=== PATIENT | male | born 1940 | race Caucasian/White ===

== ENCOUNTER 2017-08-22 21:53 | Emergency (ER) | payer OTHER ==
[~2017-08-22] VITALS: Ht 256.5 cm; Wt 119.5 kg
[2017-08-22 21:57] VITALS: TEMP 36.5
[2017-08-22] MEDS ORDERED: SODIUM CHLORIDE 0.9% 1000ML 1,000 ML IV SCH (22:10)
--- NOTE | 2017-08-22 22:19 | EMERGENCY ROOM VISIT NOTE ---
History First contact with patient: 22:01 Chief Complaint: STROKE SYMPTOMS Stated Complaint: SLURRED SPEECH History of Present Illness The patient is a 77 year old male who presents to the Emergency Room for evaluation of slurred speech. He and give history. Patient in car with while she was driving when he noted headache associated with slurred speech. This occurred around 9pm. Symptoms lasted about 20 minutes before rapidly improving. He denies any symptoms. notes it was dark so she is unsure if any facial weakness. Patient denies arm/leg weakness. He had no other symptoms with this. Denies cp, sob, palpitations, nausea, vomiting, vision changes, neck pain, falls, injuries nor other symptoms. No medications prior to arrival. Nothing makes better nor worse. History of Stroke in past with at least 2 previous episodes. Also with history of NC and cardiac arrest. Admits he is on blood thinner (aspirin/plavix) but that he missed several recent doses. Notes no known history of head bleed though admit remote history of severe head injury in 20s for which he was in hospital but unsure if bleed at that time. Review of Systems See HPI for pertinent positives & negatives. A total of 10 systems reviewed and were otherwise negative. Past Medical/Surgical History Medical: DMII, HTN, Obesity, Cardiac Arrest, CAD, Stroke, CHF Surgical: CABG, Defibrillator Family History non-contributory Social History Smoking Status: Never Smoker Smokeless Tobacco Use: No Drug Use: none Marital Status: Housing Status: lives with significant other Occupation Status: retired Current/Historical Medications Scheduled Aspirin (Aspirin Ec), 325 MG PO DAILY Carvedilol (Coreg), 1 TAB PO BID Clopidogrel (Plavix), 75 MG PO DAILY Furosemide (Lasix), 40 MG PO DAILY Insulin Aspart (Novolog Flexpen), 20 UNITS SQ TID Insulin Human NPH (Novolin N), 30-40 UNITS SQ DAILY Losartan Potassium (Cozaar), 25 MG PO DAILY Mexiletine Hcl (Mexiletine Hcl), 150 MG PO TID Spironolactone (Aldactone), 25 MG PO DAILY Physical Exam Vital Signs Date Time Temp Pulse Resp B/P (MAP) Pulse Ox O2 Delivery O2 Flow Rate FiO2 08/23/17 00:06 64 18 145/72 96 08/22/17 23:15 60 18 135/70 95 Room Air 08/22/17 22:45 60 20 131/61 96 Room Air 08/22/17 22:29 95 Room Air 08/22/17 22:26 60 08/22/17 21:57 36.5 61 18 141/67 95 Room Air Physical Exam GENERAL: Patient is well appearing and in no acute distress. EYES: No scleral icterus, unremarkable pupils. ENT: Mucous membranes moist, no nasal congestion. NECK: No masses appreciated, no meningismus, trachea is midline. RESPIRATORY: No dyspnea. Clear to auscultation and equal bilaterally. No wheeze , no rhonchi. CARDIOVASCULAR: Regular rate and rhythm. No murmurs, rubs, gallops appreciated. GASTROINTESTINAL: Abdomen soft, nontender, no peritonitis. Bowel sounds positive. No masses appreciated. BACK: No midline tenderness, no CVA tenderness EXTREMITIES: Normal motion all extremities, no cyanosis, no edema. NEUROLOGIC: Alert and oriented, no acute motor or sensory deficits, no focal weakness, cranial nerves grossly intact. SKIN: No rash, no jaundice, no diaphoresis. Medical Decision & Procedures Laboratory Results 08/22/17 22:24 Red Blood Count 4.95, Mean Corpuscular Volume 89.9, Mean Corpuscular Hemoglobin 30.3, Mean Corpuscular Hemoglobin Concent 33.7, Mean Platelet Volume 10.3, Neutrophils (%) (Auto) 64.5, Lymphocytes (%) (Auto) 17.8, Monocytes (%) (Auto) 15.6, Eosinophils (%) (Auto) 1.7, Basophils (%) (Auto) 0.2, Neutrophils # (Auto ) 6.46, Lymphocytes # (Auto) 1.78, Monocytes # (Auto) 1.56, Eosinophils # (Auto ) 0.17, Basophils # (Auto) 0.02 08/22/17 22:24 Test 08/22/17 22:20 08/22/17 22:24 Bedside Glucose 207 mg/dl (70-99) White Blood Count 10.01 K/uL (4.8-10.8) Red Blood Count 4.95 M/uL (4.7-6.1) Hemoglobin 15.0 g/dL (14.0-18.0) Hematocrit 44.5 % (42-52) Mean Corpuscular Volume 89.9 fL (80-100) Mean Corpuscular Hemoglobin 30.3 pg (25-34) Mean Corpuscular Hemoglobin Concent 33.7 g/dl (32-36) Platelet Count 225 K/uL (130-400) Mean Platelet Volume 10.3 fL (7.4-10.4) Neutrophils (%) (Auto) 64.5 % Lymphocytes (%) (Auto) 17.8 % Monocytes (%) (Auto) 15.6 % Eosinophils (%) (Auto) 1.7 % Basophils (%) (Auto) 0.2 % Neutrophils # (Auto) 6.46 K/uL (1.4-6.5) Lymphocytes # (Auto) 1.78 K/uL (1.2-3.4) Monocytes # (Auto) 1.56 K/uL (0.11-0.59) Eosinophils # (Auto) 0.17 K/uL (0-0.5) Basophils # (Auto) 0.02 K/uL (0-0.2) RDW Standard Deviation 48.4 fL (36.4-46.3) RDW Coefficient of Variation 14.9 % (11.5-14.5) Immature Granulocyte % (Auto) 0.2 % Immature Granulocyte # (Auto) 0.02 K/uL (0.00-0.02) Prothrombin Time 10.7 SECONDS (9.0-12.0) Prothromb Time International Ratio 1.0 (0.9-1.1) Activated Partial Thromboplast Time 27.0 SECONDS (21.0-31.0) Partial Thromboplastin Ratio 1.0 Anion Gap 6.0 mmol/L (3-11) Est Creatinine Clear Calc Drug Dose 68.7 ml/min Estimated GFR () 49.2 Estimated GFR (Non- 42.5 BUN/Creatinine Ratio 19.2 (10-20) Calcium Level 9.0 mg/dl (8.5-10.1) Magnesium Level 1.9 mg/dl (1.8-2.4) Total Creatine Kinase 120 U/L (39-308) Creatine Kinase MB 2.4 ng/ml (0.5-3.6) Creatine Kinase MB Ratio 2.0 (0-3.0) Troponin I < 0.015 ng/ml (0-0.045) Medications Administered Medications (Trade) Dose Ordered Sig/Valentina Route Start Time Stop Time Status Last Admin Dose Admin Sodium Chloride 1,000 ml @ 50 mls/hr Q20H IV 08/22/17 22:10 08/23/17 00:53 DC 08/22/17 22:42 50 MLS/HR ECG Per My Interpretation Indication: other (Stroke like symptoms) Rate (beats per minute): 60 Rhythm: other (Atrial Paced with 1st AV block. No ectopy, no ischemia. QTC 416) Comparison ECG Date: no prior available Medical Decision Differential: Sepsis, Infectious (UTI/Pneumonia/Meningitis/etc), Metabolic/ Electrolyte Abnormality, Cardiac, Dehydration, Anemia, Hepatic, Endocrine, Toxicologic, Neurologic, amongst other pathologies entertained. 77 yr old with complex PMH with previous stroke, NC, amongst other medical comorbidities arrives after 20 min episode slurred speech. He admits multiple missed doses of his blood thinner (kinase medication). States he feels fine now. Work-up with no acute CT head findings. Discussed that per my medical opinion he should be brought in for further work-up and evaluation however he declines. He is of sound mind to make this decision and agrees. He understands that he may have poor outocme if something is being missed. He understands this. He understands he can return at any time and that if symptoms re-occur to call 911. He will call PCP in am. Head Trauma GCS Score: 15 Medication Reconcilliation Current Medication List: was personally reviewed by me Impression Primary Impression: Slurred speech Departure Information Dispostion Home / Self-Care Condition GOOD Referrals No Doctor, Assigned (PCP) Patient Instructions My [facility] Additional Instructions Return or call 911 immediately if worsening symptoms including headache, weakness, slurred speech, confusion, seizures or other concerns. Take all of your medications as prescribed. Call your Primary Provider in the morning to set up follow up in the next few days. We are always here to help.!
[2017-08-22 22:28] VITALS: Ht 256.5 cm; Wt 119.5 kg
[2017-08-22 22:29] VITALS: O2SAT 95
[2017-08-22 22:39] LABS: BASO % 0.2 %; BASO ABS # 0.02 K/uL (0-0.2); EOS % 1.7 %; EOS ABS # 0.17 K/uL (0-0.5); HEMATOCRIT 44.5 % (42-52); IG# 0.02 K/uL (0.00-0.02); LYMPH % 17.8 %; LYMPH ABS # 1.78 K/uL (1.2-3.4); MEAN CELL VOLUME 89.9 fL (80-100); MEAN CORPUSCULAR HEMOGLOBIN 30.3 pg (25-34); MEAN CORPUSCULAR HGB CONC 33.7 g/dl (32-36); MEAN PLATELET VOLUME 10.3 fL (7.4-10.4); MONO % 15.6 %; MONO ABS # 1.56 K/uL (0.11-0.59); NEUT % 64.5 %; NEUT ABS # 6.46 K/uL (1.4-6.5); PLATELET COUNT 225 K/uL (130-400); RED CELL DISTRIBUTION WIDTH CV 14.9 % (11.5-14.5); RED CELL DISTRIBUTION WIDTH SD 48.4 fL (36.4-46.3); WHITE BLOOD COUNT 10.01 K/uL (4.8-10.8)
[2017-08-22] MEDS ORDERED: FRS/40 PO (22:41)
[2017-08-22] MEDS ORDERED: SPIR25TA PO (22:41)
[2017-08-22] MEDS ORDERED: CLOP1TAB15 PO (22:41)
[2017-08-22] MEDS ORDERED: NVLGI/PEN SQ (22:41)
[2017-08-22] MEDS ORDERED: LOSA1TAB PO (22:41)
[2017-08-22] MEDS ORDERED: ASPI325T39 PO (22:41)
[2017-08-22] MEDS ORDERED: MXT150 PO (22:41)
[2017-08-22] MEDS ORDERED: CARV12.5 PO (22:41)
[2017-08-22] MEDS ORDERED: NVLNI SQ (22:41)
[2017-08-22 23:03] LABS: BLOOD UREA NITROGEN 30 mg/dl (7-18); CARBON DIOXIDE 31 mmol/L (21-32); CKMB 2.4 ng/ml (0.5-3.6); CREATININE 1.57 mg/dl (0.60-1.40); GLUCOSE 202 mg/dl (70-99); SODIUM 138 mmol/L (136-145)
--- NOTE | 2017-08-22 23:20 | DIAGNOSTIC IMAGING REPORT ---
HEAD WITHOUT CONTRAST (CT) CLINICAL HISTORY: 77 years-old Male presenting with Stroke. TECHNIQUE: Multidetector CT imaging of the head was performed without the use of intravenous contrast. IV contrast: None. A dose lowering technique was used consistent with the principles of ALARA (as low as reasonably achievable). COMPARISON: None. CT DOSE (mGy.cm): The estimated cumulative dose is 614.27 mGy.cm. FINDINGS: Psychiatric Clinical Nurse Specialist topogram: Unremarkable. Proportional ventricular and sulcal prominence, likely age-related parenchymal volume loss. Periventricular and subcortical white matter hypoattenuation, nonspecific but likely indicative of chronic small vessel ischemic change. No mass effect or midline shift. No hemorrhage or acute territorial infarct. No extra-axial fluid collection. Paranasal sinuses and mastoid air cells clear. Calvarium intact. IMPRESSION: 1. Chronic small vessel ischemic change. No acute intracranial abnormality. Electronically signed by: Bigg Tee M.D. 08/22/2017 11:19 PM Dictated Date/Time: 08/22/2017 11:16 PM
[2017-08-23 00:06] VITALS: BP 145/72; PULSE 64; O2SAT 96
== END 2017-08-23 00:07 | disposition home or self-care (01) ==
LOC: C.EDB 21:54 → C.EDA 08-23 00:07
DX: R47.81 Slurred speech (principal); Z86.73 Personal history of transient ischemic attack (TIA), and cerebral infarction without residual deficits; I25.2 Old myocardial infarction; Z86.74 Personal history of sudden cardiac arrest; Z79.82 Long term (current) use of aspirin; Z79.01 Long term (current) use of anticoagulants; Z79.4 Long term (current) use of insulin; E11.9 Type 2 diabetes mellitus without complications; E66.9 Obesity, unspecified; I25.10 Atherosclerotic heart disease of native coronary artery without angina pectoris; I50.9 Heart failure, unspecified; I11.0 Hypertensive heart disease with heart failure; Z95.1 Presence of aortocoronary bypass graft; Z95.810 Presence of automatic (implantable) cardiac defibrillator

== ENCOUNTER 2020-02-08 19:49 | Inpatient (IN) ==
[2020-02-08] MEDS ORDERED: NITROGLYCERIN 2% OINTMENT 30GM TUBE EXT STA (20:19)
--- NOTE | 2020-02-08 20:25 | Emergency Department Note ---
History of Present Illness General Chief complaint: Chest Pain Stated complaint: CHEST PAIN Time Seen by Provider: 02/08/20 20:05 Source: patient History of Present Illness Provider complaint: Chest pain Onset (ago): day(s) Location: chest and left Radiation: back Severity: moderate Pain Consistency: + intermittent Maximum Pain Intensity: 6 Quality: + dull Exacerbated By: + other (Exertion) Associated symptoms: + shortness of breath (Mild); no cough, no diaphoresis and no fever/chills This is a 79-year-old male with a history of CAD presenting with intermittent chest pain for the past 3 days. He describes it as a dull pain on the left side of his chest. Occasionally it radiates to his back but is not rating at this time. He states it is very mild at this time. It is worse with exertion. It is associated with some mild shortness of breath. He denies diaphoresis, fever, cough cold symptoms, abdominal pain, leg swelling or pain or any other concerning symptoms. He does state that his pain is similar to when he had prior heart problems. Home Medications Home Medications Medication Instructions Recorded Confirmed Type carvedilol 12.5 mg PO BID 03/05/18 12/10/18 History clopidogrel 75 mg PO QAM 03/05/18 12/10/18 History furosemide 40 mg PO QAM 03/05/18 12/10/18 History insulin NPH isoph U-100 human 30 - 40 unit SUBCUT BID 03/05/18 12/10/18 History [Novolin N NPH U-100 Insulin] insulin aspart U-100 [Novolog 20 unit SUBCUT TID 03/05/18 12/10/18 History Flexpen U-100 Insulin] losartan 25 mg PO QAM 03/05/18 12/10/18 History spironolactone 25 mg PO QAM 03/05/18 12/10/18 History aspirin 81 mg PO QAM 12/10/18 12/10/18 History Allergies Allergy/AdvReac Type Severity Reaction Status Date / Time latex Allergy Severe HIVES Verified 12/10/18 14:25 TELEMETRY PATCHES AdvReac Severe RED SKIN Uncoded 12/10/18 14:25 AT SITE Past Med/Surg History Medical History (Updated 02/08/20 @ 22:15 by Camilo Arvizu MD) Diabetes Hx of myocardial infarction Surgical History H/O angioplasty H/O knee surgery H/O shoulder surgery History of back surgery Hx of tonsillectomy No pertinent past surgical history No significant past surgical history Family History Other No significant family history Social History Smoking Status: Never smoker Preferred Language: [place] Feels Safe at Home: Yes Review of Systems See HPI for pertinent positives & negatives. and A total of 10 systems reviewed and were otherwise negative Physical Exam Vital Signs Vital Signs - 24 hr 02/08/20 19:51 02/08/20 20:28 02/08/20 20:30 Temperature 36.7 C Temperature Source Oral Pulse Rate 87 85 86 Pulse Rate from SpO2 Sensor 86 Respiratory Rate 18 22 14 Respiratory Effort / Characteristics Non-Labored Spontaneous Respiratory Depth Normal Respiratory Pattern Regular Blood Pressure 212/133 H Blood Pressure Mean 159 Blood Pressure Position Sitting Pulse Oximetry 96 92 Oxygen Delivery Method Room Air Oxygen Flow Rate Sepsis Recent Fever Within 48 Hours No Sepsis New/Unexplained Change in Mental Status No Sepsis Action Taken by Nursing No Action Required Oxygen Flow Rate - Titration Pulse Oximetry Post Tiitration 02/08/20 20:39 02/08/20 20:40 02/08/20 20:43 Temperature Temperature Source Pulse Rate 86 86 Pulse Rate from SpO2 Sensor 86 Respiratory Rate 15 16 Respiratory Effort / Characteristics Respiratory Depth Respiratory Pattern Blood Pressure 192/92 H Blood Pressure Mean 109 Blood Pressure Position Pulse Oximetry 94 94 Oxygen Delivery Method Room Air Oxygen Flow Rate Sepsis Recent Fever Within 48 Hours Sepsis New/Unexplained Change in Mental Status Sepsis Action Taken by Nursing Oxygen Flow Rate - Titration Pulse Oximetry Post Tiitration 02/08/20 20:54 02/08/20 21:00 02/08/20 22:05 Temperature Temperature Source Pulse Rate 79 71 Pulse Rate from SpO2 Sensor 80 Respiratory Rate 15 Respiratory Effort / Characteristics Respiratory Depth Respiratory Pattern Blood Pressure 200/101 H 190/97 H Blood Pressure Mean 114 Blood Pressure Position Pulse Oximetry 86 L 96 Oxygen Delivery Method Room Air Oxygen Flow Rate 0 Sepsis Recent Fever Within 48 Hours Sepsis New/Unexplained Change in Mental Status Sepsis Action Taken by Nursing Oxygen Flow Rate - Titration 2 Pulse Oximetry Post Tiitration 98 Constitutional: Vital signs reviewed. Eyes: Pupils are equal round reactive to light. Conjunctiva are noninjected. ENT: Pharynx is clear without erythema or exudate. Mucous membranes are moist. Neck supple without meningeal signs. Respiratory: Clear to auscultation bilaterally. Breath sounds are equal bilaterally. Cardiovascular: Regular rate and rhythm. No rubs or gallops. GI: Soft, nondistended and nontender. Bowel sounds are present. Musculoskeletal: No peripheral edema. No lower extremity tenderness. Integumentary: No cyanosis. or jaundice. Neurological: The patient is awake and alert. Hard of hearing. Psychiatric: Normal affect. Not anxious appearing. Course Administered Medications Discontinued Medications Insulin Human Regular (Novolin-R Insulin Per Unit Charge) 8 units IV NOW STA Stop: 02/08/20 22:00 Last Admin: 02/08/20 22:05 Dose: 8 units Documented by: [id number] Cosigned by: [id number] Metoprolol Tartrate (Metoprolol Tartrate 1 Mg/Ml Vial) 2.5 mg IV NOW STA Stop: 02/08/20 21:56 Last Admin: 02/08/20 22:05 Dose: 2.5 mg Documented by: [id number] Morphine Sulfate (Morphine Sulfate 4 Mg/Ml 1 Ml Carp\Vial) 3 mg IV NOW STA Stop: 02/08/20 20:29 Last Admin: 02/08/20 20:45 Dose: 3 mg Documented by: [id number] Nitroglycerin (Nitroglycerin 2% Ointment 30gm Tube) 0.5 inch EXT NOW STA Stop: 02/08/20 20:20 Last Admin: 02/08/20 20:46 Dose: Not Given Documented by: [id number] Ondansetron HCl (Ondansetron Inj 2 Mg/Ml 2 Ml Vial) 4 mg IV NOW STA Stop: 02/08/20 20:29 Last Admin: 02/08/20 20:45 Dose: 4 mg Documented by: [id number] Critical Care Time Critical Care Time: Yes Total Critical Care Time: 40 I have personally spent approximately 40 minutes of critical care time in the direct management of this patient. This includes bedside care, interpretation of diagnostic studies, and testing, discussion with consultants, patient, and family members, and other required patient management activities. These minutes are in excess of all separately billable procedures. Medical Decision Making Differential Diagnosis Unstable angina, OR, GERD, pleurisy, pneumonia Medical Records Attestation: I reviewed the patient's medical records. I did perform a limited focused review of portions of the patient's old chart on the electronic medical record. The patient has had no recent pertinent visits to this hospital. Home Medications Current Medication List: was personally reviewed by me Laboratory Data Attestation: I reviewed the patient's lab results. Result diagrams: 02/08/20 20:34 02/08/20 20:34 Lab Results 02/08/20 02/08/20 02/08/20 Range/Units 20:34 20:34 20:34 WBC 11.59 H (4.8-10.8) K/uL RBC 4.65 L (4.7-6.1) M/uL Hgb 13.9 L (14.0-18.0) g/dL Hct 43.6 (42-52) % MCV 93.8 (80-100) fL MCH 29.9 (25-34) pg MCHC 31.9 L (32-36) g/dL RDW Std Deviation 50.4 H (36.4-46.3) fL RDW Coeff of Ken 14.8 H (11.5-14.5) % Plt Count 282 (130-400) K/uL MPV 10.7 H (7.4-10.4) fL Immature Gran % (Auto) 0.3 % Neut % (Auto) 81.4 % Lymph % (Auto) 8.0 % Powell % (Auto) 9.1 % Eos % (Auto) 1.0 % Baso % (Auto) 0.2 % Neut # (Auto) 9.43 H (1.4-6.5) K/uL Lymph # (Auto) 0.93 L (1.2-3.4) K/uL Powell # (Auto) 1.06 H (0.11-0.59) K/uL Eos # (Auto) 0.12 (0-0.5) K/uL Baso # (Auto) 0.02 (0-0.2) K/uL Immature Gran # (Auto) 0.03 H (0.00-0.02) K/uL PT 10.9 (9.0-12.0) Seconds INR 1.0 (0.9-1.1) APTT 28.1 (21.0-31.0) Seconds PTT Ratio 1.0 Sodium 134 L (136-145) mmol/L Potassium 4.5 (3.5-5.1) mmol/L Chloride 97 L (98-107) mmol/L Carbon Dioxide 28 (21-32) mmol/L Anion Gap 9.0 (3-11) BUN 40 H (7-18) mg/dl Creatinine 2.00 H (0.6-1.4) mg/dl Est Cr Clr Drug Dosing Not Reportable Est GFR ( Amer) 36.2 Est GFR (Non-Af Amer) 31.3 BUN/Creatinine Ratio 20.1 H (10-20) Glucose 532 H* (70-99) mg/dl Calcium 9.3 (8.5-10.1) mg/dl Total Bilirubin 0.5 (0.2-1) mg/dl AST 27 (15-37) U/L ALT 25 (12-78) U/L Alkaline Phosphatase 135 H (45-117) U/L Troponin I 0.940 H* (0-0.045) ng/ml Total Protein 8.6 H (6.4-8.2) gm/dl Albumin 3.7 (3.4-5.0) gm/dl Globulin 4.9 H (2.5-4.0) gm/dl Albumin/Globulin Ratio 0.8 L (0.9-2) Lipase 91 (73-393) U/L Beta-Hydroxybutyric Acd 1.00 (0.2-2.81) mg/dl Imaging Data Attestation: I personally reviewed and interpreted this imaging study as follows: My Impression: Chest x-ray per my interpretation shows no acute cardiopulmonary process. He does have cardiomegaly with sternal wires in place. The film appears rotated. ECG Data Attestation: I personally reviewed and interpreted this ECG as follows: Indication: + chest pain Rate (beats per minute): 89 Rhythm: + normal sinus ECG Intervals/blocks: + First degree AV block ECG ST segments: + Nonspecific ST abnormalities ECG Findings: no PVCs Comparison ECG Date: from (August 22, 2017) Change: no significant change (Rhythm at bedtime but he did have ST depressions and T wave inversions in the lateral leads as well as some slight elevation in aVR.) MDM Narrative I did evaluate the patient as noted above. The patient is presenting with intermittent exertional chest discomfort for the past 3 days with some mild shortness of breath. He does have a prior history of OR. He does state that he took an aspirin prior to arrival. IV access was established. I did place an order for continuous cardiac monitoring. The monitor showed normal sinus rhythm at a rate of 84 bpm. He is very hypertensive. I originally ordered nitroglycerin for the patient but he states that he gets a serious side effect from it. He is not sure what the side effect is. I therefore treated him with IV morphine and Zofran. On reassessment the patient states that he feels much better and his chest pain is resolved. His O2 saturation was noted to be 86 on room air by the nurse. When I checked it he was 95% on room air. The nurse had placed him on oxygen and so I took him off. He would drift down to the lower 90s but then come back up to 95. He states he is not currently short of breath. I did order and personally review the patient's 12-lead EKG as described above. He has some ST depressions and T wave inversions in the high lateral leads as well as slight elevation in aVR. This was present on his previous EKG from 2018. I did order and personally reviewed the images of the patient's chest x- ray as described above. Chest x-ray shows cardiomegaly. No pneumonia is noted. I did order and review the patient's blood work as noted in the electronic medical record. His white count is slightly elevated. Hemoglobin is 13.9. Electrolytes show a mild hyponatremia at 134. His blood sugar is 532. He was given normal saline to 50 mL IV. He was also given insulin 8 units IV. His creatinine is elevated at 2.0 above his baseline of 1.8. His troponin is 0.9. I did discuss the test results with the patient and his . I did strongly recommend that he stay in the hospital. He had concerns about his not being able to stay with him. I did talk to the charge nurse who spoke to the sugar house supervisor who stated that this would not be possible. I did apologize to the patient and his for this and he agreed to stay in the hospital. He is not having any chest discomfort at this time. He is severely hypertensive and so I did give him a dose of Lopressor 2.5 mg IV. His blood pressure did improve. He continues to be chest pain-free. I did discuss the case with the hospitalist and employment case manager. Impression & Plan Chest pain, Elevated troponin, Acute kidney injury superimposed on CKD, Acute hyperglycemia, Hypertensive emergency Discharge Plan Visit Data Chief Complaint: Chest Pain Stated Complaint: CHEST PAIN ED Provider: Camilo Arvizu Discharge Problem: Chest pain, Elevated troponin, Acute kidney injury superimposed on CKD, Acute h yperglycemia, Hypertensive emergency Patient Disposition: Being Evaluated by Hospitalist Forms Stand Alone Forms: My [facility] Prescriptions Prescriptions: No Action furosemide 40 mg tablet 40 mg PO QAM RF: 0 carvedilol 12.5 mg tablet 12.5 mg PO BID RF: 0 clopidogrel 75 mg tablet 75 mg PO QAM RF: 0 spironolactone 25 mg tablet 25 mg PO QAM RF: 0 losartan 25 mg tablet 25 mg PO QAM RF: 0 Novolin N NPH U-100 Insulin 100 unit/mL Suspension 30 - 40 unit SUBCUT BID RF: 0 Novolog Flexpen U-100 Insulin 100 unit/mL insulin pen 20 unit subcut TID RF: 0 aspirin 81 mg Tablet,Delayed Release (Dr/Ec) 81 mg PO QAM RF: 0 Referrals Referrals: Clay Lowry MD [Primary Care Provider] -
[2020-02-08] MEDS ORDERED: MoRPHine SULFATE 4 MG/ML 1 ML CARP\\VIAL IV STA (20:28)
[2020-02-08] MEDS ORDERED: ONDANSETRON INJ 2 MG/ML 2 ML VIAL IV STA (20:28)
[2020-02-08 20:52] LABS: Basophils # (auto) 0.02 K/uL (0-0.2); Basophils % (auto) 0.2 %; Eosinophils # (auto) 0.12 K/uL (0-0.5); Hematocrit (blood only) 43.6 % (42-52); Hemoglobin 13.9 g/dL (14.0-18.0); Immature Granulocytes # (auto) 0.03 K/uL (0.00-0.02); Immature Granulocytes % (auto) 0.3 %; Lymphocytes # (auto) 0.93 K/uL (1.2-3.4); Mean Corpuscular Hemoglobin 29.9 pg (25-34); Mean Corpuscular Hgb Conc 31.9 g/dL (32-36); Mean Corpuscular Volume 93.8 fL (80-100); Mean Platelet Volume 10.7 fL (7.4-10.4); Monocytes # (auto) 1.06 K/uL (0.11-0.59); Monocytes % (auto) 9.1 %; Neutrophils # (auto) 9.43 K/uL (1.4-6.5); Neutrophils % (auto) 81.4 %; Platelet Count 282 K/uL (130-400); RDW Coefficient of Variation 14.8 % (11.5-14.5); RDW Standard Deviation 50.4 fL (36.4-46.3); Red Blood Count 4.65 M/uL (4.7-6.1); White Blood Count 11.59 K/uL (4.8-10.8)
[2020-02-08 21:04] LABS: Partial Thromboplastin Time 28.1 Seconds (21.0-31.0); Prothrombin Time 10.9 Seconds (9.0-12.0)
[2020-02-08 21:14] LABS: Alanine Aminotransferase 25 U/L (12-78); Albumin Globulin Ratio 0.8 (0.9-2); Albumin Level 3.7 gm/dl (3.4-5.0); Alkaline Phosphatase 135 U/L (45-117); Aspartate Aminotransferase 27 U/L (15-37); BUN Creatinine Ratio 20.1 (10-20); Bilirubin,Total 0.5 mg/dl (0.2-1); Blood Urea Nitrogen 40 mg/dl (7-18); Calcium 9.3 mg/dl (8.5-10.1); Carbon Dioxide 28 mmol/L (21-32); Chloride 97 mmol/L (98-107); Est GFR (African American) 36.2; Est GFR (Non-African American) 31.3; Globulin 4.9 gm/dl (2.5-4.0); Glucose 532 mg/dl (70-99); Lipase 91 U/L (73-393); Potassium 4.5 mmol/L (3.5-5.1); Sodium 134 mmol/L (136-145); Total Protein 8.6 gm/dl (6.4-8.2)
[2020-02-08] MEDS ORDERED: METOPROLOL TARTRATE 1 MG/ML VIAL IV STA (21:55)
[2020-02-08] MEDS ORDERED: NovoLIN-R INSULIN PER UNIT CHARGE IV STA (21:59)
[2020-02-09] MEDS ORDERED: NovoLIN-R INSULIN PER UNIT CHARGE IV STA (00:17)
[2020-02-09] MEDS ORDERED: GLUCOSE 10 TABS/TUBE PO PRN (01:38)
[2020-02-09] MEDS ORDERED: ONDANSETRON INJ 2 MG/ML 2 ML VIAL IV PRN (01:38)
[2020-02-09] MEDS ORDERED: GLUCOSE 40% GEL 15 GM TUBE PO PRN (01:38)
[2020-02-09] MEDS ORDERED: BACLOFEN 10 MG TAB PO PRN (01:38)
[2020-02-09] MEDS ORDERED: GLUCAGON FOR INJ 1 MG VIAL SQ PRN (01:38)
[2020-02-09] MEDS ORDERED: DEXTROSE 50% 50 ML SYRINGE IV PRN (01:38)
[2020-02-09] MEDS ORDERED: CARBOHYDRATES FOR HYPOGLYCEMIA PO PRN (01:38)
[2020-02-09] MEDS ORDERED: ACETAMINOPHEN 325 MG TAB PO PRN (01:38)
[2020-02-09] MEDS ORDERED: INSULIN HUMAN REGULAR PER UNIT 5 UNITS in SYRINGE 4.95 ML IV ONE (02:30)
[2020-02-09] MEDS: INSULIN ASPART 100 UNITS/ML 3 ML PEN SC SCH ×3 (03:08→12:44)
[2020-02-09] MEDS: carvediloL 12.5 MG TAB PO SCH ×2 (03:09→08:06)
[2020-02-09] MEDS: TICAGRELOR 90 MG TAB PO SCH ×2 (03:10→08:06)
--- NOTE | 2020-02-09 06:09 | History & Physical Report ---
Date of Service February 09, 2020 Assessment & Plan (1) Non-STEMI (non-ST elevated myocardial infarction): Non-STEMI/CAD/hypertension/pacemaker/history of LA- The patient will be admitted to telemetry for serial cardiac enzymes, serial EKG's, cardiac rhythm monitoring and a 2-D echocardiogram with Dopplers. Initial troponin 0 0.940 Symptoms were completely relieved by morphine IV. Patient reports he is unable to take nitroglycerin due to some form of adverse reaction. Continue aspirin 81 mg every morning, carvedilol 12.5 mg p.o. twice daily, losartan 25 mg every morning, spironolactone 25 mg every morning and Brilinta 90 mg p.o. twice daily. Consult cardiology. Order cardiology notes from [facility] for review in the a.m. If recurrent symptoms overnight, will place on heparin drip Present on Admission?: Yes (2) CAD (coronary artery disease), [place] coronary artery: See above Present on Admission?: Yes (3) Hypertension: See above Present on Admission?: Yes (4) Pacemaker: See above Present on Admission?: Yes (5) Hx of myocardial infarction: See above Present on Admission?: Yes (6) Hyperlipidemia: Continue atorvastatin 40 mg daily Present on Admission?: Yes (7) Diabetes: Reduce Humulin N from 30-40 subcu twice daily to 30 subcu twice daily. Patient with hyperglycemia, glucose was initially 532 in the ED. After receiving IV regular insulin 8 units and then 10 units IV, glucose was 280. Place on Accu-Cheks before meals and at bedtime with NovoLog coverage per scale. Hold his standard NovoLog 20 units subcu 3 times daily for now Check hemoglobin A1c Present on Admission?: Yes Admission and Anticipated Discharge Date Admission Date: February 09, 2020 History of Present Illness Chief Complaint: The patient presents to the emergency department with dull, substernal and left-sided chest pain, along with shortness of breath for the past 3 days Primary Care Provider: Clay Lowry MD The patient is a 79-year-old male with a past medical history including hypertensive emergency, CHF, hyperlipidemia, hypertension, status post pacemaker, sensorineural hearing loss bilaterally, history of LA and diabetes mellitus. He presented to the emergency department with the above symptoms, which were relieved by 3 mg of IV morphine given by the ED. Work-up in the emergency department included the following abnormal laboratories: Glucose 532, troponin 0 0.940, creatinine 2.00, WBC 11.59. Chest x-ray showed mild CHF and and presence of ICD. He reports that he is unable to take nitroglycerin in any form, due to unknown adverse reaction. In the emergency department he also received: Lopressor 2.5 mg IV, Zofran 4 mg IV and morphine sulfate 3 mg IV x2. Allergies Allergy/AdvReac Type Severity Reaction Status Date / Time latex Allergy Severe HIVES Verified 02/08/20 22:21 nitroglycerin AdvReac Unknown Verified 02/08/20 22:21 [From Nitrostat] TELEMETRY PATCHES AdvReac Severe RED SKIN Uncoded 02/08/20 22:21 AT SITE Home Medications Home Medications Medication Instructions Recorded Confirmed Type carvedilol 12.5 mg PO BID 03/05/18 02/08/20 History furosemide 40 mg PO QAM 03/05/18 02/08/20 History insulin NPH isoph U-100 human 30 - 40 unit SUBCUT BID 03/05/18 02/08/20 History [Novolin N NPH U-100 Insulin] insulin aspart U-100 [Novolog 20 unit SUBCUT TID 03/05/18 02/08/20 History Flexpen U-100 Insulin] losartan 25 mg PO QAM 03/05/18 02/08/20 History spironolactone 25 mg PO QAM 03/05/18 02/08/20 History aspirin 81 mg PO QAM 12/10/18 02/08/20 History atorvastatin [Lipitor] 40 mg PO DAILY 02/08/20 02/08/20 History baclofen 10 mg PO TID PRN 02/08/20 02/08/20 History ezetimibe 10 mg PO DAILY 02/08/20 02/08/20 History ticagrelor [Brilinta] 90 mg PO BID 02/08/20 02/08/20 History Past Med/Surg History Medical History (Updated 02/09/20 @ 06:04 by Valdimir Thornton MD) CAD (coronary artery disease), [place] coronary artery Diabetes Hx of myocardial infarction Surgical History H/O angioplasty H/O knee surgery H/O shoulder surgery History of back surgery Hx of tonsillectomy No pertinent past surgical history No significant past surgical history Family History Other No significant family history Social History Smoking Status: Never smoker Hx Alcohol Use: Yes Alcohol type: beer Hx Substance Use: No Preferred Language: Cambodian Communication Ability: Effective 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 Beliefs That Will Affect Care: None Current Living Situation: Spouse Other Information That Helps Us Care for You: No Feels Safe at Home: Yes Safety Concerns: Feels Safe At This Time Assistive Devices: Walker and Wheelchair Review of Systems Review of Systems: The patient denies sore throat, fevers, chills, sweats, andra sea, vomiting, diarrhea, constipation, abdominal pain, pelvic pain, blood in urine or stool, dysuria, urinary frequency or urgency, loss of consciousness, rash, abnormal bruising or bleeding, imbalance, focal weakness, numbness or tingling in arms or legs, generalized arthralgias or myalgias, back or neck pain, or night sweats. The review of systems is otherwise negative other than for that already noted above, and at least 10 systems have been reviewed. Physical Exam Physical Exam: The patient is awake, alert and oriented 3, well developed and well nourished, normocephalic and atraumatic, lying in bed and in no acute distress. HEENT--PERRL, EOMI, mucous membranes and oropharynx normal. Neck--supple. No JVD. No bruits. Thyroid normal, trachea midline, no adenopathy. Heart--normal S1 and S2. No murmurs, rubs or gallops. Lungs--few crackles at the bases bilaterally no respiratory distress, no accessory muscle use. Abdomen--normal bowel sounds and soft. Nontender. Nondistended. Morbidly obese Extremities--no cyanosis or clubbing. No edema. There are good distal pulses b/l. Dermatologic--normal skin turgor, normal color, no abnormal lymph nodes, no rash. Neurologic--cranial nerves II through XII grossly intact. Rheumatologic--normal range of motion. Psychiatric--normal affect. Results & Data Results & Data ([facility]) Vital Signs (Past 12 Hours) Vital Signs Temp Pulse Pulse Resp BP BP Pulse Ox 11/08/20 03:46 97.5 F L 63 19 151/74 H 99 02/09/20 01:39 98.1 F 66 18 190/81 H 95 02/09/20 00:52 81 18 147/74 H 94 02/09/20 00:03 66 18 136/72 96 02/08/20 23:27 68 18 202/92 H 98 02/08/20 22:50 61 18 213/110 H 93 02/08/20 22:05 71 190/97 H 02/08/20 21:00 79 15 200/101 H 96 02/08/20 20:54 86 L 02/08/20 20:43 94 02/08/20 20:40 86 16 94 02/08/20 20:39 86 15 192/92 H 02/08/20 20:30 86 14 02/08/20 20:28 85 22 92 02/08/20 19:51 98.1 F 87 18 212/133 H 96 Laboratory Results Laboratory Results WBC 11.59 K/uL (4.8-10.8) H 02/08/20 20:34 RBC 4.65 M/uL (4.7-6.1) L 02/08/20 20:34 Hgb 13.9 g/dL (14.0-18.0) L 02/08/20 20:34 Hct 43.6 % (42-52) 02/08/20 20:34 MCV 93.8 fL (80-100) 02/08/20 20:34 MCH 29.9 pg (25-34) 02/08/20 20:34 MCHC 31.9 g/dL (32-36) L 02/08/20 20:34 RDW Std Deviation 50.4 fL (36.4-46.3) H 02/08/20 20:34 RDW Coeff of Ken 14.8 % (11.5-14.5) H 02/08/20 20:34 Plt Count 282 K/uL (130-400) 02/08/20 20:34 MPV 10.7 fL (7.4-10.4) H 02/08/20 20:34 Immature Gran % (Auto) 0.3 % 02/08/20 20:34 Neut % (Auto) 81.4 % 02/08/20 20:34 Lymph % (Auto) 8.0 % 02/08/20 20:34 [place] % (Auto) 9.1 % 02/08/20 20:34 Eos % (Auto) 1.0 % 02/08/20 20:34 Baso % (Auto) 0.2 % 02/08/20 20:34 Neut # (Auto) 9.43 K/uL (1.4-6.5) H 02/08/20 20:34 Lymph # (Auto) 0.93 K/uL (1.2-3.4) L 02/08/20 20:34 [place] # (Auto) 1.06 K/uL (0.11-0.59) H 02/08/20 20:34 Eos # (Auto) 0.12 K/uL (0-0.5) 02/08/20 20:34 Baso # (Auto) 0.02 K/uL (0-0.2) 02/08/20 20:34 Immature Gran # (Auto) 0.03 K/uL (0.00-0.02) H 02/08/20 20:34 PT 10.9 Seconds (9.0-12.0) 02/08/20 20:34 INR 1.0 (0.9-1.1) 02/08/20 20:34 APTT 28.1 Seconds (21.0-31.0) 02/08/20 20:34 PTT Ratio 1.0 02/08/20 20:34 Sodium 134 mmol/L (136-145) L 02/08/20 20:34 Potassium 4.5 mmol/L (3.5-5.1) 02/08/20 20:34 Chloride 97 mmol/L (98-107) L 02/08/20 20:34 Carbon Dioxide 28 mmol/L (21-32) 02/08/20 20:34 Anion Gap 9.0 (3-11) 02/08/20 20:34 BUN 40 mg/dl (7-18) H 02/08/20 20:34 Creatinine 2.00 mg/dl (0.6-1.4) H 02/08/20 20:34 Est Cr Clr Drug Dosing Not Reportable 02/08/20 20:34 Est GFR ( Amer) 36.2 02/08/20 20:34 Est GFR (Non-Af Amer) 31.3 02/08/20 20:34 BUN/Creatinine Ratio 20.1 (10-20) H 02/08/20 20:34 Glucose 532 mg/dl (70-99) H* 02/08/20 20:34 POC Glucose 280 mg/dl (70-99) H 02/09/20 01:57 Calcium 9.3 mg/dl (8.5-10.1) 02/08/20 20:34 Total Bilirubin 0.5 mg/dl (0.2-1) 02/08/20 20:34 AST 27 U/L (15-37) 02/08/20 20:34 ALT 25 U/L (12-78) 02/08/20 20:34 Alkaline Phosphatase 135 U/L (45-117) H 02/08/20 20:34 Troponin I 0.940 ng/ml (0-0.045) H* 02/08/20 20:34 Total Protein 8.6 gm/dl (6.4-8.2) H 02/08/20 20:34 Albumin 3.7 gm/dl (3.4-5.0) 02/08/20 20:34 Globulin 4.9 gm/dl (2.5-4.0) H 02/08/20 20:34 Albumin/Globulin Ratio 0.8 (0.9-2) L 02/08/20 20:34 Lipase 91 U/L (73-393) 02/08/20 20:34 Beta-Hydroxybutyric Acd 1.00 mg/dl (0.2-2.81) 02/08/20 20:34 Code Status & VTE Plan Code Status Full code VTE Prophylaxis Plan VTE Prophylaxis will be ordered: Yes PG Care Time/CCT Total # of Minutes Spent Total Time Spent with Patient: Total time spent is greater than 50% in coordination of care (as documented) at patient's floor/unit and/or counseling patient: Coding Level of Care Code 68901 Initial Inpt Care Lvl 3 Diagnoses Non-STEMI (non-ST elevated myocardial infarction) I21.4 CAD (coronary artery disease), tel[place] coronary artery I25.10 Hypertension I10 Pacemaker Z95.0 Hx of myocardial infarction I25.2 Hyperlipidemia E78.5 Diabetes E11.9
--- NOTE | 2020-02-09 07:46 | XRay Report ---
XR chest 1V portable CLINICAL HISTORY: Atypical chest pain COMPARISON STUDY: No previous studies for comparison. FINDINGS: The heart is enlarged. There are postsurgical changes of a midline sternotomy. There is a l eft subclavian pacer/defibrillator. There is diffuse elevation of the interstitium, consistent with c ongestive failure/fluid overload. There are scattered calcified pulmonary nodules likely on a postinf lammatory basis.[There is no lobar consolidation IMPRESSION: Cardiomegaly and radiographic evidence of mild congestive failure/fluid overload. Clinica l and radiographic follow-up recommended ACT 112: Negative or not required by law. Electronically signed by: Barber Preciado M.D. 02/09/2020 7:44 AM
[2020-02-09] MEDS ORDERED: INSULIN HUMAN NPH SC SCH (08:00)
[2020-02-09] MEDS ORDERED: EZETIMIBE 10 MG TABLET PO SCH (09:00)
[2020-02-09] MEDS ORDERED: FUROSEMIDE 40 MG TAB PO SCH (09:00)
[2020-02-09] MEDS ORDERED: LOSARTAN POTASSIUM 25 MG TAB PO SCH (09:00)
[2020-02-09] MEDS ORDERED: ASPIRIN 81 MG ECTAB PO SCH (09:00)
[2020-02-09] MEDS ORDERED: ATORVASTATIN 40 MG TAB PO SCH (09:00)
[2020-02-09] MEDS ORDERED: SPIRONOLACTONE 25 MG TAB PO SCH (09:00)
[2020-02-09 09:24] LABS: BUN Creatinine Ratio 20.1 (10-20); Calcium 8.8 mg/dl (8.5-10.1); Creatinine Clr Calc Pharmacy 40.6 ml/min; Est GFR (African American) 41.2; Est GFR (Non-African American) 35.5; Potassium 4.2 mmol/L (3.5-5.1)
[2020-02-09] MEDS ORDERED: HEPARIN SODIUM/DEXTROSE 25,000 UNITS/500 ML BAG IV SCH (09:30)
[2020-02-09] MEDS: Heparin IV Standard *NO* Bolus IV SCH ×2 (10:17→10:19)
[2020-02-09] MEDS ORDERED: PHARMACY GLYCEMIC MGMT CONSULT SCH (10:42)
--- NOTE | 2020-02-09 10:54 | Cardiology Consultation ---
Date of Consultation We were asked to see the patient secondary to a non-ST elevation myocardial infarction. His is present during the interview process. He is basically sedentary sitting in a chair all day if he does walk with his walker he is short of breath. He does not usually have chest tightness or chest pressure but yesterday during the football game he had chest pressure. This caused him to come to the emergency room. He is currently pain-free. He denies any lightheadedness or dizziness. He denies any presyncope syncope. Denies any palpitations or fluttering. He sleeps in a chair chronically as he is short of breath if he lays flat. He does sleep with CPAP on a regular basis. He has no lower extremity edema his appetite has been good. He denies any increased abdominal distention. He denies any bleeding or bruising dark stools or black stools. He is very frustrated this morning some of this may be related to his prior stroke is as mentioned in his outside records. He notes that all the doctors in [place] lied to him. He just wants someone to tell him the truth today. He seems very angry this morning. The rest of a complete her systems otherwise negative February 09, 2020 History of Present Illness Attending Physician: Claritza Lewis MD Allergies Allergy/AdvReac Type Severity Reaction Status Date / Time latex Allergy Severe HIVES Verified 02/08/20 22:21 nitroglycerin AdvReac Unknown Verified 02/08/20 22:21 [From Nitrostat] TELEMETRY PATCHES AdvReac Severe RED SKIN Uncoded 02/08/20 22:21 AT SITE Home Medications Home Medications Medication Instructions Recorded Confirmed Type carvedilol 12.5 mg PO BID 03/05/18 02/08/20 History furosemide 40 mg PO QAM 03/05/18 02/08/20 History insulin NPH isoph U-100 human 30 - 40 unit SUBCUT BID 03/05/18 02/08/20 History [Novolin N NPH U-100 Insulin] insulin aspart U-100 [Novolog 20 unit SUBCUT TID 03/05/18 02/08/20 History Flexpen U-100 Insulin] losartan 25 mg PO QAM 03/05/18 02/08/20 History spironolactone 25 mg PO QAM 03/05/18 02/08/20 History aspirin 81 mg PO QAM 12/10/18 02/08/20 History atorvastatin [Lipitor] 40 mg PO DAILY 02/08/20 02/08/20 History baclofen 10 mg PO TID PRN 02/08/20 02/08/20 History ezetimibe 10 mg PO DAILY 02/08/20 02/08/20 History ticagrelor [Brilinta] 90 mg PO BID 02/08/20 02/08/20 History Patient History Medical History CAD (coronary artery disease), [place] coronary artery Diabetes Hx of myocardial infarction Surgical History H/O angioplasty H/O knee surgery H/O shoulder surgery History of back surgery Hx of tonsillectomy No pertinent past surgical history No significant past surgical history Family History Other No significant family history Social History Smoking Status: Never smoker Hx Alcohol Use: Yes Alcohol type: beer Hx Substance Use: No Preferred Language: Thai Communication Ability: Effective 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 Beliefs That Will Affect Care: None Current Living Situation: Spouse Other Information That Helps Us Care for You: No Feels Safe at Home: Yes Safety Concerns: Feels Safe At This Time Assistive Devices: Walker and Wheelchair Results & Data ([facility]) Vital Signs (Past 12 Hours) Vital Signs Temp Pulse Resp BP Pulse Ox 02/09/20 07:22 36.9 C 78 16 120/75 91 02/09/20 03:46 36.4 C L 63 19 151/74 H 99 02/09/20 01:39 36.7 C 66 18 190/81 H 95 02/09/20 00:52 81 18 147/74 H 94 02/09/20 00:03 66 18 136/72 96 02/08/20 23:27 68 18 202/92 H 98 He is awake alert oriented to person he was not sure what time of day it was as the blinds were closed on the windows H EENT: Moderately reduced carotid upstrokes no evidence of carotid bruits Lungs: Globally decreased breath sounds no rales rhonchi or wheezing Heart: Regular rate and rhythm no appreciable murmurs or rubs Abdomen: Soft obese nontender nondistended Extremities no clubbing cyanosis or edema psychiatric as discussed above Neurologic: He moves all extremities Impressions: 1. Non-ST ovation myocardial infarction 2. Recent cardiac catheterization March 2019 at [facility] for a recurrent non-ST elevation myocardial infarction: the [place] coronaries are completely occluded proximally: He had a 50% left main lesion and multiple high-grade stenosis (80 and 90%) in the ramus intermediate branch There was a 95% subtotal occlusion of the distal RCA and an 80% stenosis of the proximal right PDA which were beyond the touchdown of his JOSE graft; 70 to 80% stenosis at the anastomosis of the EUBANKS graft to the distal LAD 3. Mild ischemic cardiomyopathy 4 dual-chamber ICD secondary to previous cardiac arrest x2 5 hypertension 6 hyperlipidemia 7 chronic kidney disease with a creatinine of 2.0 8. History AVNRT status post ablation 9. Obstructive sleep apnea tolerating CPAP 10. 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 Aguirre can review them based on the above anatomy it does not appear that any of this is amenable for percutaneous intervention. This is especially untrue in light of his chronic kidney disease and the amount of dye that he would need to have received to do the procedure would likely lead to worsening renal dysfunction and even dialysis. He is on appropriate medical regimen including dual antiplatelet therapy, statin therapy, beta-blockers and an angiotensin receptor kristen. He is intolerant of nitroglycerin for unknown reasons. If he has worsening angina Ranexa is an option. I would continue his heparin for 48 hours. In all likelihood his only option is going to be medical therapy. I would repeat his echocardiogram to see if he has worsening of his underlying known mild ischemic cardiomyopathy. All this was discussed with the patient in detail. He appreciated the honesty but became even more frustrated at that point. This was discussed with the hospitalist service as well as the nursing staff
--- NOTE | 2020-02-09 11:36 | Pharmacy Report ---
Glycemic Control Consultation - Date of Service February 09, 2020 - Scope Scope: Glycemic Pharmacist consulted for glycemic control and to write orders per [facility] inpatient glycemic control protocol. - Objective Weight: 113.3 kg Accuchecks BSG (last 24hrs): 02/08/20 02/08/20 02/09/20 20:34 23:03 01:01 Glucose 532 H* POC Glucose 407 H* 299 H 02/09/20 02/09/20 02/09/20 01:57 07:21 07:41 Glucose 277 H POC Glucose 280 H 280 H Laboratory Data (last 24hrs): 02/08/20 02/09/20 20:34 07:41 Potassium 4.5 4.2 Carbon Dioxide 28 28 Anion Gap 9.0 7.0 Creatinine 2.00 H 1.80 H Est Cr Clr Drug Dosing Not Reportable 40.6 Beta-Hydroxybutyric Acd 1.00 - Recent Pertinent Medications Outpatient Anti-diabetic Regimen: * Novolog 20 units TID * NPH 30-40 units BID * A1c pending The patient is currently receiving: * Regular insulin IV boluses 8 units x 1, 10 units x 1, and 5 units x 1 * Basal insulin: NPH 30 units SQ BID * Correctional Insulin: Novolog Correction per scale ACHS Goal Range: Low 100 mg/dL - High 150 mg/dL Correction Factor: 25 mg/dL/unit * Prandial insulin: Per carb ratio of 1 unit per 10 grams CHO consumed Risk Factors for Insulin Resistance: * IVF: Heparin drip mixed in D5 * Diet: Type 2 DM - Assessment & Plan Assessment & Plan: ASSESSMENT: * 79 year old male admitted with NSTEMI, on heparin drip, hyperglycemic, on insulin as outpatient, unknown control, A1c pending. * Blood sugars very high on admission, came down into 200s with 3 doses of IV regular insulin. * Patient started on home NPH, will continue, and tighten CF/CR to be more reflective of home prandial coverage. Patient uses ~ 140units/day as outpatient. PLAN FOR INPATIENT GLYCEMIC CONTROL: * Basal insulin * NPH 30 units SQ BID with meals * Bolus insulin * NovoLog per scale ACHS or Q6hrs while NPO * Goal Range: Low 110 mg/dL - High 140 mg/dL * Correction Factor: 10 mg/dL/unit * Nutritional / Prandial insulin per carb ratio of 1 unit per 4 grams CHO consumed * Please note that the plan above was derived based on current level of insulin resistance and hospital stress. These recommendations are appropriate for inpatient admission only. Plan of care upon discharge will need to be reassessed to avoid potential outpatient hypo/hyperglycemia. Thank you.
--- NOTE | 2020-02-09 12:35 | Electrocardiogram Report ---
Test Reason : Blood Pressure : / mmHG Vent. Rate : 089 BPM Atrial Rate : 089 BPM P-R Int : 226 ms QRS Dur : 108 ms QT Int : 376 ms P-R-T Axes : 084 -07 139 degrees QTc Int : 457 ms Sinus rhythm with 1st degree A-V block Poor R wave progression, consider anterior IL vs. lead placement vs. LVH Non-specific intra-ventricular conduction delay Marked ST abnormality, possible lateral subendocardial injury Abnormal ECG When compared with ECG of 22-AUG-2017 22:18, Sinus rhythm has replaced Electronic atrial pacemaker Vent. rate has increased BY [address] more depressed in the Lateral leads Confirmed by Diony Conklin ([id number]) on 02/09/2020 12:34:43 PM Referred By: REFERRED SELF Confirmed By:Diony Conklin
--- NOTE | 2020-02-09 14:08 | Discharge Summary ---
Date of Service February 09, 2020 Admission HPI Per Admitting Provider The patient is a 79-year-old male with a past medical history including hypertensive emergency, CHF, hyperlipidemia, hypertension, status post pacemaker, sensorineural hearing loss bilaterally, history of [place] and diabetes mellitus. He presented to the emergency department with the above symptoms, which were relieved by 3 mg of IV morphine given by the ED. Work-up in the emergency department included the following abnormal laboratories: Glucose 532, troponin 0 0.940, creatinine 2.00, WBC 11.59. Chest x-ray showed mild CHF and and presence of ICD. He reports that he is unable to take nitroglycerin in any form, due to unknown adverse reaction. In the emergency department he also received: Lopressor 2.5 mg IV, Zofran 4 mg IV and morphine sulfate 3 mg IV x2. Principal Diagnosis NSTEMI Left Against Medical Advice Discharge Exam Constitutional WD/WN, vitals as above + morbidly obese Eyes + anicteric sclerae Neck trachea midline, no thyromegaly Respiratory normal respiratory effort, lungs clear to auscultation Cardiovascular RRR, no murmur, no edema Chest (Breasts) Chest: normal inspection of chest Gastrointestinal (Abdomen) normal bowel sounds, soft, nontender, no hepatosplenomegaly Musculoskeletal Extremities: extremities normal to inspection; no cyanosis and no clubbing Skin no rashes, warm and dry Neurologic moves all extremities and awake; no focal motor deficits Psychiatric Orientation: alert and oriented x 3 Speech: + loud speech Affect: + angry affect and mood congruent with affect Mood: + angry mood Thought Process: goal directed thought process Lymphatic no lymphedema Discharge Data Allergies Allergy/AdvReac Type Severity Reaction Status Date / Time latex Allergy Severe HIVES Verified 02/08/20 22:21 nitroglycerin AdvReac Unknown Verified 02/08/20 22:21 [From Nitrostat] TELEMETRY PATCHES AdvReac Severe RED SKIN Uncoded 02/08/20 22:21 AT SITE Consultations 02/08/20 21:54 ED Decision to Admit Stat 02/09/20 01:38 Consult Case Management - Discharge Planning Routine 02/09/20 08:30 Consult Cardiology Routine Ordered Studies ECHO CXR Hospital Course (1) Non-STEMI (non-ST elevated myocardial infarction): Non-STEMI/CAD/hypertension/pacemaker/history of [place]- Presented with CP off and on x 3 days, then had hypertensive emergency here Was treated for his elevated BP, given morphine, and it improved Troponin trended upward to 34 and he was started on heparin gtt. Cardiology was consulted-wanted to manage medically and review cath report from [facility] Continue aspirin 81 mg every morning, carvedilol 12.5 mg p.o. twice daily, losartan 25 mg every morning, spironolactone 25 mg every morning and Brilinta 90 mg p.o. twice daily. Unfortunately, despite multiple discussions with patient and his about the importance of staying for further treatment, he wanted to leave AMA. He understood he had a significantly high risk of worsening [place] and . was agreeable to taking him home and did not think that he was in a confused state. Pt left AMA needs f/u with PCP and Mask Former as outpt (2) CAD (coronary artery disease), [place] coronary artery: See above (3) Hypertension: See above (4) Pacemaker: See above (5) Hx of myocardial infarction: See above (6) Hyperlipidemia: Continue atorvastatin 40 mg daily (7) Diabetes: Reduce Humulin N from 30-40 subcu twice daily to 30 subcu twice daily. Patient with hyperglycemia, glucose was initially 532 in the ED. After receiving IV regular insulin 8 units and then 10 units IV, glucose was 280. was teated with insulin and glucose improved recommend f/u with PCP as outpt Total Time Total Time Spent Total Time Spent (In Minutes): 45 min Total Time Includes: Examination of the Patient, Discharge Planning, Medication Reconciliation and Communication With Other Providers (Cardiology) Discharge Plan Discharge Items Patient Disposition: Against Medical Advice Reason For Visit: NONSTEMI Discharge Diagnosis: NSTEMI, hyperglycemia, acute kidney injury Condition on Discharge: Fair Activity: As commented below Exercise/Sports: Rest today Non-emergency contact: Primary Care Provider and Mask Former Call non-emergency contact if: you have any medication questions and your symptoms worsen Follow-up/Referrals: Clay Lowry MD [Primary Care Provider] - (Please follow-up within 1 week) Diet: Carb Consistent or DM2 and Heart Healthy Addtl Attending Provider Instructions: Notice for patients leaving the hospital against medical advice: We respect your right to leave the hospital at a time of your choosing. In this case we recommend that you remain in the hospital. We believe that staying longer will allow for the observation, testing, and/or treatments needed to reduce your risk of worsening health. It is possible for a patient to leave the hospital against medical advice and later develop complications, including pain, disability, or even due to a problem which could have been prevented or managed if that patient was still in the hospital. Patients who leave [facility] against medical advice may return at any time if their problem worsens, new problems occur, or if they change their mind. We strongly recommend early follow up with a health care provider after leaving the hospital Pending Studies at Discharge: No Stand-Alone Forms: My [facility] Skilled Items Patient informed of condition?: Yes DNR: No Discharge Level of Care: Other Communicable Disease: No Discharge Prognosis: Stable Medications and DC Order Prescriptions: Continued furosemide 40 mg tablet 40 mg PO QAM RF: 0 carvedilol 12.5 mg tablet 12.5 mg PO BID RF: 0 spironolactone 25 mg tablet 25 mg PO QAM RF: 0 losartan 25 mg tablet 25 mg PO QAM RF: 0 Novolin N NPH U-100 Insulin 100 unit/mL Suspension 30 - 40 unit SUBCUT BID RF: 0 insulin aspart U-100 100 unit/mL insulin pen 20 unit subcut TID RF: 0 ezetimibe 10 mg tablet 10 mg PO DAILY RF: 0 Brilinta 90 mg tablet 90 mg PO BID RF: 0 atorvastatin [Lipitor] 40 mg tablet 40 mg PO DAILY RF: 0 baclofen 10 mg tablet 10 mg PO TID PRN (Reason: muscle spasms) RF: 0 aspirin 81 mg Tablet,Delayed Release (Dr/Ec) 81 mg PO QAM RF: 0 Discharge Orders: Left Against Medical Advice (Routine); Ordered 02/09/20 Ordered By: Claritza Lewis Admission Data Admit Date/Time: 02/09/20 00:37 Attending Provider: Claritza Lewis Admit Provider: Vladimir Thornton Primary Care Provider: Clay Lowry Other Providers: Vladimir Thornton ; Diony Conklin Other Interventions: Discharge Summary Assessment (RN) Last Done: 02/09/20 14:21 Coding Level of Care Code None Diagnoses Non-STEMI (non-ST elevated myocardial infarction) I21.4 CAD (coronary artery disease), [place] coronary artery I25.10 Hypertension I10 Pacemaker Z95.0 Hx of myocardial infarction I25.2 Hyperlipidemia E78.5 Diabetes E11.9
[2020-02-10 06:40] LABS: Estimated Average Glucose 298 mg/dl
== END 2020-02-09 14:22 | disposition left against medical advice (07) | DRG 282 ==
LOC: ED 19:49 → 2S 02-09 00:37 → SUATTDRO 02-09 00:37 → 2S 02-09 01:09